=== PATIENT | female | born 1950 | race Caucasian/White ===

== ENCOUNTER 2016-08-01 15:06 | Emergency (ER) | payer MEDICARE, BC ==
[~2016-08-01] VITALS: Ht 160 cm; Wt 105.0 kg
[2016-08-01 15:10] VITALS: BP 162/77; PULSE 77; RESP 15; TEMP 98.2; O2SAT 98
[2016-08-01] MEDS ORDERED: MELO-1 PO (15:31)
--- NOTE | 2016-08-01 15:36 | PD ---
HPI . Right sided rib pain and occasional shortness of breath Chief Complaint: Fall Time Seen by Provider: 15:36 Travel History International Travel<30 days: No Contact w/Intl Traveler<30days: No Traveled to known affect area: No History of Present Illness HPI 66-year-old female with history of arthritis here with complaints of right sided rib pain. On July 23, 2016 patient sustained a fall and hurt the right side of her rib cage. She says that a few days later the pain subsided and she thought everything was okay. She went to a conference and all of a sudden the pain returned and she developed some intermittent shortness of breath. She tells me at rest pain is about 2/10, with movement, deep inspiration or coughing pain is rated 7/10. She denies any other symptoms or complaints. She is accompanied by her daughter and granddaughter. PFSH Past Medical History Arthritis: Yes ?: Not Past Surgical History Section: Yes Hysterectomy: Yes Social History Alcohol Use: Yes (socially) Tobacco Use: No Substance Use: No Allergies-Medications (Allergen,Severity, Reaction): Coded Allergies: Penicillin (Unverified Allergy, Mild, 08/01/16) Reported Meds & Prescriptions Reported Meds & Active Scripts Active Reported Meloxicam 15 Mg Tab 15 Mg PO DAILY Review of Systems General / Constitutional: No: Fever Eyes: No: Visual changes HENT: No: Headaches Cardiovascular: No: Chest Pain or Discomfort Respiratory: Positive: Shortness of Breath, Other (right side rib pain) Gastrointestinal: No: Abdominal Pain Genitourinary: No: Dysuria Musculoskeletal: No: Pain Skin: No Rash Neurologic: No: Weakness Psychiatric: No: Depression Endocrine: No: Polydipsia Hematologic/Lymphatic: No: Easy Bruising Physical Exam Narrative GENERAL: AAO x 3, no acute distress, Well-nourished, well-developed patient. SKIN: Warm and dry. No visible rashes or bruising. No ecchymosis on chest or back HEAD: Normocephalic and atraumatic. EYES: No scleral icterus. No injection or drainage. ENT: No nasal drainage noted. Mucous membranes pink. Airway patent. NECK: Supple, trachea midline. No JVD. CARDIOVASCULAR: Regular rate and rhythm without murmurs, gallops, or rubs. RESPIRATORY: Breath sounds equal bilaterally. No accessory muscle use. No rhonchi or rales. No reproducible pain on palpation in the thorax GASTROINTESTINAL: Abdomen soft, non-tender, nondistended. EXTREMITIES: No cyanosis or edema. BACK: Nontender without obvious deformity. No CVA tenderness. NEURO: CN II-12 intact, supervisor machine workers strength normal b/l, UE and LE 5/5, no focal deficits PSYCH: AAO x 3, normal affect. Data Data Last Documented VS Vital Signs Date Time Temp Pulse Resp B/P Pulse Ox O2 Delivery O2 Flow Rate FiO2 08/01/16 15:27 76 20 98 Room Air 08/01/16 15:10 98.2 162/77 Orders Basic Metabolic Panel (Bmp) (08/01/16 15:36) D-Dimer (08/01/16 15:36) Ribs, Uni (W/Exp Cxr-Min 3vw) (08/01/16 15:42) Ct Pulmonary Angiogram (08/01/16 16:43) Iohexol 350 Inj (Omnipaque 350 Inj) (08/01/16 18:48) Labs Laboratory Tests Test 08/01/16 15:40 D-Dimer Quantitative (PE/DVT) 1.07 MG/L FEU Sodium Level 141 MEQ/L Potassium Level 4.0 MEQ/L Chloride Level 107 MEQ/L Carbon Dioxide Level 28.8 MEQ/L Anion Gap 5 MEQ/L Blood Urea Nitrogen 14 MG/DL Creatinine 0.64 MG/DL Estimat Glomerular Filtration 93 ML/MIN Rate Random Glucose 69 MG/DL Calcium Level 9.1 MG/DL MDM Medical Decision Making Medical Screen Exam Complete: Yes Emergency Medical Condition: Yes Medical Record Reviewed: Yes Differential Diagnosis Rib fracture, rib contusion, pneumothorax, CHF, pulmonary emboli Narrative Course 66-year-old male here with complaints of rib pain status post fall and some occasional shortness of breath. Completed examination on her and there are no acute findings. Chest x-ray and d-dimer have been ordered. CXR WNL Last Impressions Ribs X-Ray 08/01/16 1542 Signed Impressions: Service Date/Time: Wednesday, August 01, 2016 15:47 - CONCLUSION: No perceptible rib fracture. No pneumothorax or other acute cardiopulmonary disease demonstrated. Vick Lindquist MD CT angiogram negative for pulmonary emboli. Patient has some ground glass opacity. Differential includes hypersensitivity pneumonitis. I discussed the findings with the patient and she was understanding. I explained more than likely she has rib contusions which will cause pain. She can use [id number] Tylenol and Motrin as needed. Last Impressions CT Angiography 08/01/16 1643 Signed Impressions: Service Date/Time: Monday, August 01, 2016 18:43 - CONCLUSION: 1. Negative for pulmonary embolus. 2. Lobular air-trapping in the lungs with some groundglass opacity. Differential diagnosis includes hypersensitivity pneumonitis. Solo Hall MD Ribs X-Ray 08/01/16 1542 Signed Impressions: Service Date/Time: Monday, August 01, 2016 15:47 - CONCLUSION: No perceptible rib fracture. No pneumothorax or other acute cardiopulmonary disease demonstrated. Vick Lindquist MD Patient verbalized understanding of instructions, questions were answered, and thanked me for their care. I advised them if their condition worsens, please return to the nearest emergency room for further care. Diagnosis Primary Impression: Rib pain on right side Patient Instructions: General Instructions Additional Instructions: Please return to emergency department if your symptoms return or worsen. Follow up with your primary care provider. Take medications as prescribed. Please follow up with your primary care provider. Med/Other Pt SpecificInfo: No Change to Meds Disposition: 01 DISCHARGE HOME Condition: Stable Alexia Palma Aug 01, 2016 15:36
--- NOTE | 2016-08-01 16:05 | RADRPT ---
EXAM DATE/TIME: 08/01/2016 15:47 [facility] COMPARISON: No previous studies available for comparison. INDICATIONS : Pain on right side of ribs under lateral side of breast after a fall. MEDICAL HISTORY : None. SURGICAL HISTORY : None. ENCOUNTER: Initial ACUITY: 1 day PAIN SCORE: 6/10 LOCATION: Right lateral rib FINDINGS: Multiple views of the right ribs were performed. There is no evidence of displaced fracture. No ellen tructive lesions or areas of periosteal thickening are seen. Expiratory view of the chest is negativ e for pneumothorax. The mediastinal structures are midline. CONCLUSION: No perceptible rib fracture. No pneumothorax or other acute cardiopulmonary disease demonstrated. Vick Lindquist MD on August 01, 2016 at 16:00 Board Certified Radiologist. This report was verified electronically.
[2016-08-01 16:42] LABS: BICARBONATE 28.8 MEQ/L (21.0-32.0)
[2016-08-01] MEDS ORDERED: IOHEXOL 350 MG/ML 10 ML VIAL (for RAD DIAG) IV ONE (18:48)
--- NOTE | 2016-08-01 19:24 | RADRPT ---
EXAM DATE/TIME: 08/01/2016 18:43 [facility] COMPARISON: No previous studies available for comparison. INDICATIONS : Shortness of breath; evaluate for embolism. IV CONTRAST: 74 cc Omnipaque 350 (iohexol) IV RADIATION DOSE: 25.04 CTDIvol (mGy) MEDICAL HISTORY : None SURGICAL HISTORY : Hysterectomy. ENCOUNTER: Initial ACUITY: 1 week PAIN SCALE: 0/10 LOCATION: chest TECHNIQUE: Volumetric scanning of the chest was performed using a pulmonary embolism protocol MIP images were re constructed. Using automated exposure control and adjustment of the mA and/or kV according to patien t size, radiation dose was kept as low as reasonably achievable to obtain optimal diagnostic quality images. FINDINGS: No filling defects identified to suggest pulmonary embolic disease. There is a lobular air trapping i n the lungs. Mild groundglass opacity Minimal basilar atelectasis. Small hiatal hernia. CONCLUSION: 1. Negative for pulmonary embolus. 2. Lobular air-trapping in the lungs with some groundglass opacity. Differential diagnosis includes h ypersensitivity pneumonitis. Solo Hall MD on August 01, 2016 at 19:11 Board Certified Radiologist. This report was verified electronically.
== END 2016-08-01 20:07 | disposition home or self-care (01) ==
LOC: NEPD 15:06
DX: R07.81 Pleurodynia (principal); R06.02 Shortness of breath
CPT/HCPCS: 71101; 71275; 80048; 85379; 99285; Q9967